=== PATIENT | female | born 1990 | race Two or more races ===

== ENCOUNTER 2022-11-19 10:21 | Emergency (ER) | payer BC, OTHER, SELFPAY ==
[2022-11-19] VITALS (11 sets, daily range): BP systolic 114–146; BP diastolic 72–85; PULSE 70–111; RESP 13–20; TEMP 36.5; O2SAT 98; BMI 35.6
--- NOTE | 2022-11-19 10:48 | CT_ITS ---
The [address] [address] Patient Name: BEVERLEY HAINES MRN: [id number] date: 1990 Sex: F Assigned Patient Location: ER Current Patient Location: ER Accession/Order Number: [id number] Exam Date: 11/19/2022 11:11 Report Date: 11/19/2022 12:03 At the request of: MELBA STARKEY Procedure: CT angio neck EXAM: CT angio head, CT angio neck HISTORY: paresthesias COMPARISON: CT head performed contemporaneously and reported separately. TECHNIQUE: Subsequent postcontrast CTA imaging of the head and neck was performed with coronal and sagittal reformats. Maximum intensity projection and 3-D reformats were performed on a separate workstation. NASCET criteria was utilized. This CT exam was performed using one or more of the following dose reduction techniques: Automated exposure control, adjustment of the MA and/or kV according to patient size, or use of iterative reconstruction technique. FINDINGS: Aortic arch: Imaged portion shows no evidence of aneurysm. No significant stenosis of the major origins of the major arch vessels. Right carotid system: No evidence of significant (50% or greater) stenosis or occlusion. Left carotid system: No evidence of significant (50% or greater) stenosis or occlusion. Vertebral arteries: Codominant. No evidence of significant (50% or greater) stenosis or occlusion. Anterior circulation: No evidence of aneurysm, significant stenosis, or occlusion. Vertebrobasilar system: No evidence of aneurysm, significant stenosis, or occlusion. Venous sinuses: Grossly patent. Additional findings: No abnormal intracranial enhancement. Visualized portion of the upper lungs are clear. Neck soft tissues are grossly unremarkable. IMPRESSION: No significant stenosis, large vessel occlusion or aneurysm involving the neck or intracranial arterial vasculature. Electronically authenticated by: FLASH SMYTH Date: 11/19/2022 12:03
--- NOTE | 2022-11-19 10:48 | ECG_ITS ---
The [facility] Test Date: 2022-11-19 Pat Name: Alba Payne Department: Room: - Gender: Female [employer]: : 1990 Requested By: LATRICE MANCERA Order Number: [id number] Reading MD: PORTIA GRIER Measurements Intervals [place] Rate: 78 P: 69 ND: 146 QRS: 73 QRSD: 78 T: 30 QT: 380 QTc: 413 Interpretive Statements 1100 Sinus rhythm 1108 Marked sinus arrhythmia 9130 borderline ECG No previous ECG available for comparison Electronically Signed On 11-20-2022 5:42:54 EDT by PROTIA GRIER
--- NOTE | 2022-11-19 10:48 | CT_ITS ---
The [address] [address] Patient Name: BEVERLEY HAINES MRN: [id number] date: 1990 Sex: F Assigned Patient Location: ER Current Patient Location: ER Accession/Order Number: [id number] Exam Date: 11/19/2022 11:11 Report Date: 11/19/2022 12:03 At the request of: MELBA STARKEY Procedure: CT angio head EXAM: CT angio head, CT angio neck HISTORY: paresthesias COMPARISON: CT head performed contemporaneously and reported separately. TECHNIQUE: Subsequent postcontrast CTA imaging of the head and neck was performed with coronal and sagittal reformats. Maximum intensity projection and 3-D reformats were performed on a separate workstation. NASCET criteria was utilized. This CT exam was performed using one or more of the following dose reduction techniques: Automated exposure control, adjustment of the MA and/or kV according to patient size, or use of iterative reconstruction technique. FINDINGS: Aortic arch: Imaged portion shows no evidence of aneurysm. No significant stenosis of the major origins of the major arch vessels. Right carotid system: No evidence of significant (50% or greater) stenosis or occlusion. Left carotid system: No evidence of significant (50% or greater) stenosis or occlusion. Vertebral arteries: Codominant. No evidence of significant (50% or greater) stenosis or occlusion. Anterior circulation: No evidence of aneurysm, significant stenosis, or occlusion. Vertebrobasilar system: No evidence of aneurysm, significant stenosis, or occlusion. Venous sinuses: Grossly patent. Additional findings: No abnormal intracranial enhancement. Visualized portion of the upper lungs are clear. Neck soft tissues are grossly unremarkable. IMPRESSION: No significant stenosis, large vessel occlusion or aneurysm involving the neck or intracranial arterial vasculature. Electronically authenticated by: FLASH SMYTH Date: 11/19/2022 12:03
--- NOTE | 2022-11-19 10:48 | XR_ITS ---
The [address] [address] Patient Name: BEVERLEY HAINES MRN: [id number] date: 1990 Sex: F Assigned Patient Location: ER Current Patient Location: ER Accession/Order Number: [id number] Exam Date: 11/19/2022 11:11 Report Date: 11/19/2022 11:59 At the request of: MELBA STARKEY Procedure: XR chest 1V EXAM: XR chest 1V HISTORY: cva COMPARISON: None. TECHNIQUE: Chest X-ray AP, 1 view FINDINGS: Support devices: None. Lungs/pleura: No consolidation, effusion, or pneumothorax. Heart and mediastinum: Normal contours. Bones: No acute abnormality identified. Impression: No radiographic evidence of acute cardiopulmonary process. Electronically authenticated by: FREDI GARCIA Date: 11/19/2022 11:59
--- NOTE | 2022-11-19 10:48 | CT_ITS ---
[address] [address] Patient Name: BEVERLEY HAINES MRN: [id number] date: 1990 Sex: F Assigned Patient Location: ER Current Patient Location: ER Accession/Order Number: [id number] Exam Date: 11/19/2022 11:11 Report Date: 11/19/2022 12:00 At the request of: MELBA STARKEY Procedure: CT stroke head/brain wo con EXAM: CT stroke head/brain wo con; [id number] REASON FOR EXAM: left paresthesias COMPARISON: None. TECHNIQUE: Axial CT images of the head obtained without contrast. Multiplanar reformats generated at the scanner. Dose reduction technique used: Automated exposure control and/or adjustment of the mA and/or kV according to patient size and/or use of iterative reconstruction technique. FINDINGS: Parenchyma: -Normal parenchymal pattern. -No midline shift or mass effect. Basilar cisterns are patent. -No acute intracranial hemorrhage. -No loss of cortical moncada-white differentiation to indicate acute cortical infarct. Extra-axial spaces: No extra-axial fluid collection or hemorrhage. Ventricles: Normal in size and symmetric. Paranasal sinuses: Visualized paranasal sinuses are clear. Mastoid air cells: Visualized mastoids are clear. Orbits: No acute abnormality. Osseous: No acute findings. Soft tissues: No acute abnormality. IMPRESSION: No acute intracranial abnormality. Electronically authenticated by: BRENDA REARDON Date: 11/19/2022 12:00
--- NOTE | 2022-11-19 10:48 | ED_ITS ---
HPI - Neuro Symptoms/Deficit General Chief Complaint: Neuro Symptoms/Deficit Stated Complaint: GENERAL WEAKNESS Time Seen by Provider: 11/19/22 10:48 Source: patient History of Present Illness HPI Narrative: He presents emergency department complaining of dizziness. Patient states she went to bed well and woke up this morning at 6 in the morning feeling dizzy as if the room was unsteady. She got up she felt like she was leaning towards the right. This lasted approximately one hour and the dizziness resolved but she noted that she was having numbness to the left face and left arm and left chest abdomen pelvis and left leg. She describes it as feeling Heavy or feeling as though sluggish but not really weak. She is able to walk without any ataxia. She denies any trauma. She denies any headache. She denies any visual disturbance or speech difficulties. Denies any history of stroke.She denies any fever, chills, cough, chest pain, shortness of breath. She denies any neck pain or sore throat. She denies any abdominal pain, nausea, vomiting, diarrhea, constipation. She denies any flank pain, hematuria, dysuria. She has not been sick with any thing in the past. She states the heaviness sensation to the left side is resolving but she call her primary care doctor and was told come to the emergency department for evaluation. Denies any ear pain or tinnitus. Related Data Previous Rx's Medication Instructions Recorded meclizine 25 mg tablet 25 mg PO TID PRN dizziness #20 tabs 11/19/22 Allergies Allergy/AdvReac Type Severity Reaction Status Date / Time amoxicillin Allergy Verified 11/19/22 10:28 Review of Systems ROS Narrative ROS: Unless otherwise stated in this report the patient's positive and negative responses for review of systems for constitutional, eyes, ENT, cardiovascular, respiratory, gastrointestinal, neurological, , musculoskeletal and integument systems and related systems to the presenting problem are either stated in the history of present illness or were not pertinent or were negative for the symptoms and/or complaints related to the presenting medical problem. Exam Narrative Exam Narrative: Nurses notes and vital signs reviewed and patient is not hypoxic. General: Nontoxic, Well-appearing and in no apparent distress. Skin: Warm, dry, no pallor noted. No Rash Head: Normocephalic, atraumatic. Neck: Supple, non-tender. Eye: Pupils are equal, round and EOMI. No scleral icterus.No nystagmus Ears, Nose, Mouth, and Throat: TM clear, no posterior oropharynx erythema or nasal mucosal hypertrophy, uvula is mid-line Oral mucosa is moist Cardiovascular: Regular Rate and Rhythm without murmur, gallop or rub. Respiratory: No accessory muscle use or respiratory distress. Lungs are clear to auscultation, no wheezing, rales or rhonchi Chest Wall: no tenderness Back: No midline thoracic or lumbar vertebral tenderness. No CVA tenderness Musculoskeletal: normal ROM, no calf or popliteal tenderness, no lower extremity edema/swelling GI: Abdomen is soft, non-distended. Normal bowel sounds. No masses appreciated. No tenderness to palpation. No rebound, guarding, or rigidity noted. Neurological: A&O x4. No cranial nerve dysfunction observed. No truncal ataxia. Moves all extremities. Sensation intact.NIHSS =0, No facial drooping. There is no dysarthria, normal supervisor hanging and trimming, no tongue deviation, normal sensation to the right and the left arm and legs. Normal And equal strength To all extremities. Psychiatric: Cooperative and interactive. Normal mood and affect. Constitutional Vital Signs - 24 hr 11/19/22 10:28 11/19/22 10:33 11/19/22 10:34 Temperature 97.7 F Pulse Rate 90 83 Pulse Rate [Monitor Left] 98 H Respiratory Rate 18 18 14 Blood Pressure Blood Pressure [Left Arm] 146/85 H Pulse Oximetry 98 11/19/22 10:35 11/19/22 11:01 11/19/22 11:35 Temperature Pulse Rate 76 111 H Pulse Rate [Monitor Left] Respiratory Rate 13 20 Blood Pressure 120/80 H 120/76 H Blood Pressure [Left Arm] Pulse Oximetry 11/19/22 11:40 11/19/22 11:50 11/19/22 11:59 Temperature Pulse Rate 86 70 79 Pulse Rate [Monitor Left] Respiratory Rate 17 14 17 Blood Pressure Blood Pressure [Left Arm] Pulse Oximetry 11/19/22 12:00 Temperature Pulse Rate 71 Pulse Rate [Monitor Left] Respiratory Rate 15 Blood Pressure 114/72 Blood Pressure [Left Arm] Pulse Oximetry Course Course Hospital Course: Vital Signs Vital signs: Vital Signs Temperature 97.7 F 11/19/22 10:28 Pulse Rate 98 H 11/19/22 10:28 Respiratory Rate 18 11/19/22 10:28 Blood Pressure 146/85 H 11/19/22 10:28 Pulse Oximetry 98 11/19/22 10:28 Temperature 97.7 F 11/19/22 10:28 Pulse Rate 71 11/19/22 12:00 Respiratory Rate 15 11/19/22 12:00 Blood Pressure 114/72 11/19/22 12:00 Pulse Oximetry 98 11/19/22 10:28 MDM - Neuro Symptoms/Deficit MDM Narrative Medical decision making narrative: Patient's symptoms improved throughout her stay in the emergency department. CT scan CTA and per protocol studies were done. They're all unremarkable. The patient was given an aspirin and Antivert. The patient was discussed with Dr. Lugo who advised the patient can be followed as an outpatient. She is advised to contact the office for further workup. Patient is at her baseline states her symptoms have completely resolved. At this time the patient is without objective evidence of an acute process requiring hospitalization or inpatient management. The patient has remained hemodynamically stable. No additional indication for emergent studies at this time. I answered all questions. Discussed discharge instructions including standard anticipatory guidance and what should prompt a return to the emergency department, including if they get worse are not getting better or develops any new or concerning symptoms. I've given them specific time frame in which to follow-up, and who to follow-up with. The patient demonstrates understanding. Patient is nontoxic and stable for discharge with outpatient follow-up. This note was created with the assistance of a speech recognition program. Although the intention is to generate documents that actually reflects the content of the visit, no guarantees can be provided that every mistake has been identified and corrected by editing. Differential Diagnosis Differential diagnosis: Likely peripheral neuropathy, cerebrovascular accident, multiple sclerosis and transient cerebral ischemia Lab Data Attestation: I reviewed the patient's lab results. Labs: Lab Results 11/19/22 11/19/22 11/19/22 Range/Units 10:59 11:08 13:16 WBC 6.1 (4.0-11.0) 10^3/uL RBC 4.84 (4.20-5.40) 10^6/uL Hgb 12.7 (12.0-16.0) g/dL Hct 40.5 (36.0-48.0) % MCV 83.7 (81.0-99.0) fL MCH 26.2 L (26.7-34.0) pg MCHC 31.4 (29.9-35.2) g/dL RDW 13.2 (11.0-15.0) % Plt Count 348 (150-450) 10^3/uL MPV 8.6 L (9.5-13.5) fL Neut % (Auto) 63.9 (43.0-75.0) % Lymph % (Auto) 24.7 (20.5-60.0) % [place] % (Auto) 7.6 (1.7-12.0) % Eos % (Auto) 3.1 (0.9-7.0) % Baso % (Auto) 0.5 (0.2-2.0) % Neut # (Auto) 3.9 (1.4-6.5) 10^3/uL Lymph # (Auto) 1.5 (1.2-3.8) 10^3/uL [place] # (Auto) 0.5 (0.3-0.8) 10^3/uL Eos # (Auto) 0.2 (0.0-0.7) 10^3/uL Baso # (Auto) 0.0 (0.0-0.1) 10^3/uL Abs Immat Gran (auto) 0.01 (0.00-0.03) 10^3/uL Imm/Tot Granulo (auto) 0.2 (0.0-0.5) % PT 10.3 (9.0-11.6) sec INR 0.97 APTT 27.6 (22.3-36.2) sec Sodium 135 L (136-145) mmol/L Potassium 3.9 (3.5-5.1) mmol/L Chloride 103 (98-107) mmol/L Carbon Dioxide 26.1 (21.0-32.0) mmol/L Anion Gap 9.8 BUN 13.0 (7.0-18.0) mg/dL Creatinine 0.83 (0.55-1.02) mg/dL Est GFR ( Amer) >60 (>=60) Est GFR (Non-Af Amer) >60 (>=60) BUN/Creatinine Ratio 15.7 Glucose 89 (74-106) mg/dL Calcium 8.9 (8.5-10.1) mg/dL Total Bilirubin 0.3 (0.2-1.0) mg/dL AST 14 L (15-37) U/L ALT 23 (14-59) U/L Alkaline Phosphatase 62 (46-116) U/L Troponin I High Sens <4.0 L (4.0-51.3) pg/mL Total Protein 7.4 (6.4-8.2) g/dL Albumin 3.4 (3.4-5.0) g/dL Globulin 4.0 g/dL Albumin/Globulin Ratio 0.9 HCG, Quant <1 mIU/mL Urine Color Lt. yellow (YELLOW) Urine Clarity Clear (CLEAR) Urine pH 8.0 (5.0-9.0) Ur Specific [place] 1.010 (1.005-1.025) Urine Protein Negative (NEG/TRACE) mg/dL Urine Glucose (UA) Negative (NEGATIVE) mg/dL Urine Ketones Negative (NEGATIVE) mg/dL Urine Occult Blood Negative (NEGATIVE) Urine Nitrite Negative (NEGATIVE) Urine Bilirubin Negative (NEGATIVE) Urine Urobilinogen 0.2 (0.2-1.0) EU/dL Ur Leukocyte Esterase Negative (NEGATIVE) POC Glucose 91 (74-106) mg/dL Critical Care Time Critical Care Time Critical Care Time: Yes Total Critical Care Time: 35 Attestation: Critical Care Time: 35 minutes, critical care time is separate from any procedures that are performed. The following was considered in the determination of critical care but not limited to the level medical decision-making, intensive cardiac and/or respiratory monitor, frequent vital sign monitoring, evaluation of laboratory studies, evaluation of a radiographic studies, oxygen monitoring and constant monitoring. Discharge Plan Discharge Chief Complaint: Neuro Symptoms/Deficit Clinical Impression: Dizziness, Transient cerebral ischemia, Numbness and tingling Patient Disposition: Home, Self-Care Time of Disposition Decision: 13:21 Condition: Good Mode of Transportation: Private Vehicle Prescriptions / Home Meds: New meclizine 25 mg tablet 25 mg PO TID PRN (Reason: dizziness) Qty: 20 0RF Instructions: Paresthesia (ED) Additional Instructions: START TAKING LOW DOSE ASPIRIN 81 MG ONCE DAILY PER PCP REQUEST Stand Alone Forms: Portal Instructions Referrals: LATRICE MANCERA [Primary Care Provider] - 1 week Discharge Date/Time: 11/19/22 13:34
[2022-11-19 11:09] LABS: Glucometer 91 mg/dL (74-106)
[2022-11-19 11:15] LABS: Basophils Percent Auto 0.5 % (0.2-2.0); Eosinophils Absolute Auto 0.2 10^3/uL (0.0-0.7); Eosinophils Percent Auto 3.1 % (0.9-7.0); Hematocrit 40.5 % (36.0-48.0); Hemoglobin 12.7 g/dL (12.0-16.0); Immature Granulocytes Abs Auto 0.01 10^3/uL (0.00-0.03); Immature Granulocytes Pct Auto 0.2 % (0.0-0.5); Lymphocytes Absolute Auto 1.5 10^3/uL (1.2-3.8); Lymphocytes Percent Auto 24.7 % (20.5-60.0); Mean Corpuscular HGB Conc 31.4 g/dL (29.9-35.2); Mean Corpuscular Hemoglobin 26.2 pg (26.7-34.0); Mean Corpuscular Volume 83.7 fL (81.0-99.0); Mean Platelet Volume 8.6 fL (9.5-13.5); Monocytes Absolute Auto 0.5 10^3/uL (0.3-0.8); Monocytes Percent Auto 7.6 % (1.7-12.0); Neutrophils Absolute Auto 3.9 10^3/uL (1.4-6.5); Neutrophils Percent Auto 63.9 % (43.0-75.0); Platelet Count 348 10^3/uL (150-450); Red Blood Count 4.84 10^6/uL (4.20-5.40); Red Cell Distribution Width 13.2 % (11.0-15.0); White Blood Count 6.1 10^3/uL (4.0-11.0)
[2022-11-19 11:28] LABS: Alanine Aminotransferase 23 U/L (14-59); Albumin Globulin Ratio 0.9; Albumin Level 3.4 g/dL (3.4-5.0); Alkaline Phosphatase 62 U/L (46-116); Anion Gap 9.8; Aspartate Amino Transferase 14 U/L (15-37); BUN Creatinine Ratio 15.7; Bilirubin Total 0.3 mg/dL (0.2-1.0); Calcium 8.9 mg/dL (8.5-10.1); Carbon Dioxide 26.1 mmol/L (21.0-32.0); Chloride 103 mmol/L (98-107); Estimated GFR (African America >60 (>=60); Estimated GFR (Non-African Ame >60 (>=60); Glucose 89 mg/dL (74-106); Potassium 3.9 mmol/L (3.5-5.1); Sodium 135 mmol/L (136-145); Total Protein 7.4 g/dL (6.4-8.2)
[2022-11-19 11:30] LABS: INR 0.97; Partial Thromboplastin Time 27.6 sec (22.3-36.2); Prothrombin Time 10.3 sec (9.0-11.6)
[2022-11-19 11:36] LABS: HCG Quantitative <1 mIU/mL; Troponin I High Sensitivity <4.0 pg/mL (4.0-51.3)
[2022-11-19 13:33] LABS: Bilirubin Urine NEGATIVE (NEGATIVE); Blood Urine NEGATIVE (NEGATIVE); Clarity Urine CLEAR (CLEAR); Color Urine LT. YELLOW (YELLOW); Glucose Urine UA NEGATIVE (NEGATIVE); Ketones Urine NEGATIVE (NEGATIVE); Leukocyte Esterase Urine NEGATIVE (NEGATIVE); Nitrite Urine NEGATIVE (NEGATIVE); Protein Urine NEGATIVE (NEG/TRACE); Urine Microscopic Indicated NO; Urobilinogen Urine 0.2 EU/dL (0.2-1.0)
== END 2022-11-19 13:34 | disposition home or self-care (01) ==
PROVIDERS: Emergency Provider Emergency Medicine; PCP Nurse Practitioner Family
DX: R42 Dizziness and giddiness (principal); R20.0 Anesthesia of skin; R20.2 Paresthesia of skin; I67.82 Cerebral ischemia
CPT/HCPCS: 36415; 70450; 70496; 70498; 71045; 80053; 81003; 82948; 84484; 84702; 85025; 85610; 85730; 93005; 99285; Q9967

== ENCOUNTER 2023-06-21 09:30 | Outpatient (OUT) | payer OTHER, SELFPAY ==
--- NOTE | 2023-06-21 09:35 | MR_ITS ---
The [address] [address] Patient Name: BEVERLEY HAINES MRN: [id number] date: 1990 Sex: F Assigned Patient Location: MRI Current Patient Location: MRI Accession/Order Number: [id number] Exam Date: 06/21/2023 09:40 Report Date: 06/21/2023 11:27 At the request of: LATRICE MANCERA Procedure: MR head/brain wo/w con EXAM: MR head/brain wo/w con HISTORY: Brain Lesion G93.9 COMPARISON: CT of the head from 11/19/2022 report only from MRI of the brain 07/13/2009, images unavailable for review. TECHNIQUE: Multiplanar multisequence MRI was obtained through the head without contrast and following the administration of intravenous contrast material. FINDINGS: The ventricles, sulci, and remaining CSF containing spaces maintain age-appropriate volume and symmetry. No hydrocephalus. No herniation. The moncada matter/white matter differentiation is maintained. No acute infarct or intracranial hemorrhage. Periventricular and deep white matter regions of T2 prolongation. These regions do not demonstrate associated enhancement. Following contrast administration there is no abnormal parenchymal or leptomeningeal enhancement. The central arterial flow voids and the flow voids of the major dural venous sinuses are maintained, indicative of patency. The pneumatized portions of the skull are clear. MR/MR head/brain wo/w con IMPRESSION: 1. No acute abnormality. 2. Regions of T2 prolongation within the white matter, nonspecific. Differential considerations would include but are not limited to vasculitis, demyelinating process, and sequela of migraine headache. Prior MRI of the brain images are unavailable for review. On the prior report the lesions are described as punctate; therefore, this is progressed from prior. Electronically authenticated by: ANDRA MORGAN Date: 06/21/2023 11:27
== END 2023-06-21 09:31 | disposition home or self-care (01) ==
LOC: MRI 09:30
PROVIDERS: PCP Nurse Practitioner Family; Visit Provider Nurse Practitioner Family
DX: G93.9 Disorder of brain, unspecified (principal)
CPT/HCPCS: 70553; A9575

== ENCOUNTER 2024-02-22 09:29 | Outpatient (OUT) | payer OTHER, SELFPAY ==
--- OUTSIDE RECORDS SUMMARY | 2024-02-22 09:37 | XMS_ITS | CCD ---
Author Organization [facility] Care Team Providers Care Dredge Pipeman Name Role Phone ROB, DR MARTIN Fernández Admitting Valente RIVAS, DR MARTIN Fernández Attending LATRICE Perez Primary Care Unavailable DR LAURE SIMMS Consulting Unavailable LATRICE MANCERA Primary Care Unavailable MENDEZ, DR KELSEY Attending Unavailable MENDEZ, DR KELSEY Admitting Unavailable Sharon Vargas Unavailable Allergies Allergy Classification Reported Allergen(s) Allergy Type Date of Onset Reaction(s) Facility (1 source) Amoxicillin Drug Allergy Donde Other Medications Current Medications Medication Drug Class(es) Dates Sig (Normalized) Sig (Original) dextromethorphan hydrobromide 1.5 mg/ml / pyrilamine maleate 1.5 mg/ml oral solution (1 source) Uncompetitive Q-mdittt-L-asparta te Receptor Antagonist, Sigma-1 Agonist Start: 3 take 10 mL by mouth every eight hours [place] DM 7.5-7.5 MG/5ML 10 mL Orally every 8 hours for 5 days Mar, Active methylPREDNISolone 4 mg oral tablet (1 source) Corticosteroid Start: 3 methylPREDNISolone 4 MG as directed Orally for daily dose take half with breakfast, half with dinner for 6 days Mar, Active Completed/Discontinued Medications Medication Drug Class(es) Dates Sig (Normalized) Sig (Original) phentermine hydrochloride 37.5 mg oral tablet (1 source) Sympathomimetic Amine Anorectic Phentermine HCl 37.5 MG Oral for 30 Days Not-Taking Problems Active Problems Problem Classification Problem Date Documented Da te Episodic/Chronic Other screening for suspected conditions (not mental disorders or infectious disease) (4 sources) Encounter for screening for malignant neoplasm of cervix; Translations: [ENC SCREENING MALIG NEOPLASM CERV] Onset: 04-12-2022 Episodic Other upper respiratory infections (1 source) Acute sinusitis, unspecified Episodic Past or Other Problems Problem Classification Problem Date Documented Da te Episodic/Chronic Residual codes; unclassified (4 sources) Procedure and treatment not carried out due to patient leaving prior to being seen by health care provider; Translations: [PROC AND TX NOT CARRIED OUT PT LEAVE] Onset: 06-24-2021 Episodic Unclassified (1 source) Contact with and (suspected) exposure to covid-19 Z20.822 Results Test Name Value Interpretation Reference Range Facil ity COVID Quick Testingon 2022 Result Negative [facility] Other PAP ACOG PANEL 2: 21 to 29on 04-20-2022 . . Normal [facility] Comment on above: Performed By: #### [id number] #### [facility] [address] [place] [address] Dr. Jessica Carrillo Age Gdln ACOG Testing - [facility] Comment on above: Performed By: #### [id number] #### [facility] [address] [address] [address] Jessica Carrillo DIAGNOSIS: Comment [facility] Comment on above: Result Comment: NEGATIVE FOR INTRAEPITHE LIAL LESION OR MALIGNANCY. Performed By: #### [id number] #### [facility] [address] [place] [address] Dr. Jessica Carrillo Methodology: Comment [facility] Comment on above: Result Comment: This liquid based ThinPr ep(R) pap test was screened with the use of an image guided system. Performed By: #### [id number] #### [facility] [address] [place] [address] Dr. Jessica Carrillo Note: Comment [facility] Comment on above: Result Comment: The Pap smear is a scree erasmo test designed to aid in the detection of premalignant and malignant conditions of the uterine cervix. It is not a diagnostic procedure and should not be used as the sole means of detecting cervical cancer. Both false-positive and false-negative reports do occur. . Performed By: #### [id number] #### [facility] [address] [address] [address] Jessica Carrillo Performed by: Comment Normal [facility] Comment on above: Result Comment: Rosa Cabral, Cytotech nologist (ASCP) Performed By: #### [id number] #### [facility] [address] [address] [address] Jessica Carrillo Reflex Criteria: Comment Normal [facility] Comment on above: Result Comment: The HPV DNA reflex crite leonel were not met with this specimen result therefore, no HPV testing was performed. . Performed By: #### [id number] #### [facility] [address] [address] [address] Jessica Carrillo Specimen adequacy: Comment Normal [facility] Comment on above: Result Comment: Satisfactory for evaluat ion. Endocervical and/or squamous metaplastic cells (endocervical component) are present. Performed By: #### [id number] #### [facility] [address] [place] [address] Dr. Jesscia Carrillo Vital Signs Date Time Vital Sign Value Performing Clinician Facility 03-19-2023 11:10-0400 Body height 167.64 cm Sharon Vargas Other [facility] Other 03-19-2023 11:10-0400 Body mass index (BMI) [Ratio] 36.63 kg/m2 Sharon Vargas Other [facility] Other 03-19-2023 11:10-0400 Body temperature 98.3 [degF] Sharon Vargas Other [facility] Other 03-19-2023 11:10-0400 Body weight 102.97 kg Sharon Vargas Other [facility] Other 03-19-2023 11:10-0400 Diastolic blood pressure 76 mm[Hg] Sharon Vargas Other [facility] Other 03-19-2023 11:10-0400 Respiratory rate 18 /min Sharon Vargas Other [facility] Other 03-19-2023 11:10-0400 SaO2% (BldA) [Mass fraction] 98 % Sharon Vargas Other [facility] Other 03-19-2023 11:10-0400 Systolic blood pressure 123 mm[Hg] Sharon Vargas Other [facility] Other Encounters Encounter Date Encounter Type Care Provider Facility Start: 03-19-2023 End: 03-19-2023 ambulatory Sharon Vargas Other [facility] Other Start: 03-19-2023 Office outpatient ne w 30 minutes Sharon Vargas [facility] Start: 04-12-2022 End: 04-12-[address] LAURE SIMMS Facility:[facility] Start: 06-24-2021 End: 06-24-[address] MARTIN RIVAS Facility:[facility] Payers Date Payer Category Payer Unknown [id number] [id number] 1992 Unknown [id number] 1957 Self-pay [id number] 1957 Unknown [id number] [facility] [id number] Medicaid [id number] Social History Date Type Detail Facility Unknown if ever smoked [facility] Other Sex Assigned At Sex Assigned At Bir th [facility] Other Evaluation note 03-19-2023 Note Date & Type Note Facility 03-19-2023 Evaluation note Encounter Date Diagnosis Assessment Notes Mar, Contact with and (suspected) exposure to covid-19 (ICD-10 - Z20.822) Mar, Acute non-recurrent sinusitis, unspecified location (ICD-10 - J01.90) This patient that rapid COVID test was negative today in office. Discussed diagnosis with patient today. Will treat as viral at this time based on physical exam and duration of symptoms. Advised patient viral syndromes last 7-10 days. Will send in Rx of [place] and Medrol Dosepak to use as directed. Encouraged supportive care as directed today. Push fluids/rest, nasal saline washes as directed, may use Tylenol as needed for discomfort, OTC plain Mucinex. Patient to follow up with PCP or UC for any new or worsening symptoms. Immediate eval if SOB, wheezing, difficulty breathing, or other concerning symptoms. Patient verbalizes understanding and is agreeable to treatment plan [facility] Other History general Narrative - Reported Note Date & Type Note Facility History general Narrative - Reported Type Surgical History C section Surgical History Neck Surgery [facility] Other Summary Purpose Family History No Family History Records Found Advance Directives No Advanced Directives Records Found Additional Source Comments INFORMATION SOURCE (unrecogn ized section and content) DATE CREATED AUTHOR 04/21/2022 [facility] REASON FOR VISIT (unrecogniz ed section and content) possible bronchitis FOR RECORDS PERTAINING TO PATIENTS WHO ARE OR HAVE BEEN ENROLLED IN A CHEMICAL DEPENDENCY/SUBSTANCEABUSE PROGRAM, SOME INFORMATION MAY BE OMITTED. This clinical summary was aggregated from multiple sources. Caution should be exercised in using it in the provision of clinical care. This summary normalizes information from multiple sources, and as a consequence, information in this document may materially change the coding, format and clinical context of patient data. In addition, data may be omitted in some cases. CLINICAL DECISIONS SHOULD BE BASED ON THE PRIMARY CLINICAL RECORDS. [employer] [facility] provides no warranty or guarantee of the accuracy or completeness of information in this document.
[2024-02-22 10:44] LABS: Basophils Percent Auto 0.5 % (0.2-2.0); Eosinophils Absolute Auto 0.1 10^3/uL (0.0-0.7); Hematocrit 41.3 % (36.0-48.0); Immature Granulocytes Abs Auto 0.03 10^3/uL (0.00-0.03); Immature Granulocytes Pct Auto 0.5 % (0.0-0.5); Lymphocytes Absolute Auto 1.7 10^3/uL (1.2-3.8); Lymphocytes Percent Auto 26.3 % (20.5-60.0); Mean Corpuscular HGB Conc 31.5 g/dL (29.9-35.2); Mean Corpuscular Hemoglobin 26.3 pg (26.7-34.0); Mean Corpuscular Volume 83.4 fL (81.0-99.0); Mean Platelet Volume 8.7 fL (9.5-13.5); Monocytes Absolute Auto 0.4 10^3/uL (0.3-0.8); Monocytes Percent Auto 6.3 % (1.7-12.0); Neutrophils Absolute Auto 4.1 10^3/uL (1.4-6.5); Neutrophils Percent Auto 64.4 % (43.0-75.0); Platelet Count 386 10^3/uL (150-450); Red Blood Count 4.95 10^6/uL (4.20-5.40); Red Cell Distribution Width 13.2 % (11.0-15.0); White Blood Count 6.4 10^3/uL (4.0-11.0)
[2024-02-22 11:25] LABS: Alanine Aminotransferase 29 U/L (14-59); Albumin Globulin Ratio 0.9; Albumin Level 3.6 g/dL (3.4-5.0); Alkaline Phosphatase 65 U/L (46-116); Anion Gap 11.5; Aspartate Amino Transferase 16 U/L (15-37); Bilirubin Total 0.4 mg/dL (0.2-1.0); Calcium 8.9 mg/dL (8.5-10.1); Carbon Dioxide 26.5 mmol/L (21.0-32.0); Chloride 101 mmol/L (98-107); Estimated GFR (African America >60 (>=60); Estimated GFR (Non-African Ame >60 (>=60); Globulin 4.2 g/dL; Glucose 104 mg/dL (74-106); Sodium 135 mmol/L (136-145); Thyroid Stimulating Hormone 0.674 uIU/mL (0.358-3.740); Total Protein 7.8 g/dL (6.4-8.2)
[2024-02-22 11:26] LABS: HCG Quantitative <1 mIU/mL
[2024-02-23 06:38] LABS: FSH 5.8 mIU/mL (.); Luteinizing Hormone(LH) 19.3 mIU/mL (.); Prolactin 15.6 ng/mL (4.8-33.4); Testosterone 43 ng/dL (8-60)
[2024-02-24 20:08] LABS: Estrogens, Total 213 pg/mL (.)
== END 2024-02-22 09:30 | disposition home or self-care (01) ==
LOC: LAB 09:34
PROVIDERS: PCP Nurse Practitioner Family; Visit Provider Nurse Practitioner Family
DX: N92.6 Irregular menstruation, unspecified (principal)
CPT/HCPCS: 36415; 80053; 82672; 83001; 83002; 84146; 84403; 84436; 84443; 84481; 84702; 85025